=== PATIENT | female | born 1985 | race Caucasian/White ===

== ENCOUNTER 2017-05-10 05:27 | Emergency (ER) | payer MEDICAID ==
[~2017-05-10] VITALS: Ht 154.9 cm; Wt 54.1 kg
[2017-05-10 05:33] VITALS: Ht 154.9 cm; Wt 54.1 kg
[2017-05-10 06:48] VITALS: BP 114/56
== END 2017-05-10 06:48 | disposition home or self-care (01) ==
LOC: ED 05:27
DX: N39.0 Urinary tract infection, site not specified (principal)

== ENCOUNTER 2017-07-01 09:08 | Emergency (ER) | payer MEDICAID ==
[~2017-07-01] VITALS: Ht 154.9 cm; Wt 53.7 kg
[2017-07-01 10:22] LABS: BASOPHIL % 0.4 % (0-2); PLATELET COUNT 162 x10^3mcL (130-400); RED CELL DISTRIBUTION WIDTH 12.1 % (11.5-14.5)
[2017-07-01 10:37] LABS: CALCIUM 8.7 mg/dL (8.5-10.1); CARBON DIOXIDE 28.4 mmol/L (21-32); CHLORIDE SERUM 104 mmol/L (98-107); CREATININE SERUM 0.9 mg/dL (0.6-1.0); GFR1 > 60 mL/min; GLUCOSE SERUM 92 mg/dL (74-106); POTASSIUM SERUM 3.8 mmol/L (3.5-5.1); SODIUM SERUM 138 mmol/L (136-145)
[2017-07-01 10:41] LABS: ALBUMIN 3.6 g/dL (3.4-5.0); ALKALINE PHOSPHATASE 51 U/L (46-116); ALT/SGPT 29 U/L (14-59); AMYLASE 60 U/L (25-115); AST/SGOT 18 U/L (15-37); BILIRUBIN TOTAL 0.49 mg/dL (0.20-1.00); LIPASE 150 IU/L (73-393); TOTAL PROTEIN, SERUM 7.2 g/dL (6.4-8.2)
[2017-07-01 11:04] VITALS: BP 99/60
== END 2017-07-01 11:04 | disposition home or self-care (01) ==
LOC: ED 09:08
PROVIDERS: Emergency Medicine
DX: R10.9 Unspecified abdominal pain (principal)
CPT/HCPCS: 36415; 83880; J1885

== ENCOUNTER 2018-03-20 16:20 | Emergency (ER) | payer MEDICAID ==
[~2018-03-20] VITALS: Ht 162.6 cm; Wt 54.0 kg
[2018-03-20 16:31] VITALS: Ht 162.6 cm; Wt 54.0 kg
[2018-03-20 18:06] LABS: BASOPHIL % 0.3 % (0-2); PLATELET COUNT 185 x10^3mcL (130-400); RED CELL DISTRIBUTION WIDTH 12.3 % (11.5-14.5)
[2018-03-20 18:15] LABS: CALCIUM 9.5 mg/dL (8.5-10.1); CARBON DIOXIDE 27.4 mmol/L (21-32); CHLORIDE SERUM 103 mmol/L (98-107); CREATININE SERUM 0.9 mg/dL (0.6-1.0); GFR1 > 60 mL/min; GLUCOSE SERUM 83 mg/dL (74-106); POTASSIUM SERUM 3.7 mmol/L (3.5-5.1); SODIUM SERUM 135 mmol/L (136-145)
[2018-03-20 18:20] LABS: ALBUMIN 3.6 g/dL (3.4-5.0); ALKALINE PHOSPHATASE 56 U/L (46-116); ALT/SGPT 22 U/L (14-59); AST/SGOT 15 U/L (15-37); BILIRUBIN TOTAL 0.6 mg/dL (0.20-1.00); LIPASE 150 IU/L (73-393); TOTAL PROTEIN, SERUM 7.6 g/dL (6.4-8.2)
[2018-03-20 20:06] VITALS: BP 108/56
== END 2018-03-20 20:06 | disposition home or self-care (01) ==
LOC: ED 16:20
PROVIDERS: Emergency Medicine
DX: K21.9 Gastro-esophageal reflux disease without esophagitis (principal); R07.89 Other chest pain
CPT/HCPCS: 36415; Q0092

== ENCOUNTER 2018-07-16 13:57 | Emergency (ER) | payer MEDICAID ==
[~2018-07-16] VITALS: Ht 157.5 cm; Wt 54.4 kg
[2018-07-16 14:47] VITALS: BP 129/85; Ht 157.5 cm; Wt 54.4 kg
== END 2018-07-16 18:07 | disposition home or self-care (01) ==
LOC: ED 13:57
DX: J98.01 Acute bronchospasm (principal); B34.9 Viral infection, unspecified

== ENCOUNTER 2020-02-03 20:38 | Emergency (ER) | payer MEDICAID ==
[~2020-02-03] VITALS: Ht 157.5 cm; Wt 58.5 kg
[2020-02-03 20:50] VITALS: Ht 157.5 cm; Wt 58.5 kg
[2020-02-03 22:56] LABS: BASOPHIL % 0.5 % (0-2); PLATELET COUNT 197 x10^3mcL (130-400); RED CELL DISTRIBUTION WIDTH 12.4 % (11.5-14.5)
[2020-02-03 23:15] LABS: CARBON DIOXIDE 28.3 mmol/L (21-32); CHLORIDE SERUM 107 mmol/L (98-107); GFR1 > 60 mL/min; GLUCOSE SERUM 92 mg/dL (74-106); POTASSIUM SERUM 4.2 mmol/L (3.5-5.1); SODIUM SERUM 139 mmol/L (136-145)
[2020-02-03 23:19] LABS: ALKALINE PHOSPHATASE 62 U/L (46-116); ALT/SGPT 22 U/L (14-59); AST/SGOT 16 U/L (15-37); BILIRUBIN TOTAL 0.2 mg/dL (0.20-1.00); LIPASE 146 IU/L (73-393); TOTAL PROTEIN, SERUM 6.8 g/dL (6.4-8.2)
[2020-02-03 23:20] LABS: ALBUMIN 3.3 g/dL (3.4-5.0)
[2020-02-04 02:31] VITALS: BP 113/69
== END 2020-02-04 02:31 | disposition home or self-care (01) ==
LOC: ED 20:38
PROVIDERS: Emergency Medicine
DX: R10.30 Lower abdominal pain, unspecified (principal); R11.0 Nausea; R68.83 Chills (without fever); R53.1 Weakness; R30.0 Dysuria
CPT/HCPCS: J1885; J2405; J7030

== ENCOUNTER 2020-04-14 18:02 | Emergency (ER) | payer MEDICAID ==
[~2020-04-14] VITALS: Ht 154.9 cm; Wt 58.5 kg
[2020-04-14 18:11] VITALS: Ht 154.9 cm; Wt 58.5 kg
[2020-04-14 19:32] VITALS: BP 130/81
== END 2020-04-14 19:32 | disposition home or self-care (01) ==
LOC: ED 18:02
DX: S60.551A Superficial foreign body of right hand, initial encounter (principal); X58.XXXA Exposure to other specified factors, initial encounter; Y93.89 Activity, other specified; Y92.89 Other specified places as the place of occurrence of the external cause; Y99.8 Other external cause status
CPT/HCPCS: 90715